=== PATIENT | female | born 1995 | race Caucasian/White ===

== ENCOUNTER 2022-04-15 17:09 | Emergency (ER) | payer MEDICAID ==
[~2022-04-15] VITALS: Ht 165.1 cm; Wt 73.0 kg
[2022-04-15 17:11] VITALS: BP 128/88
[2022-04-15] MEDS ORDERED: ACYC200C31 MT (21:16)
== END 2022-04-15 21:30 | disposition home or self-care (01) ==
LOC: ER 17:09
DX: K12.1 Other forms of stomatitis (principal)
CPT/HCPCS: 81025; 99282; 99283